=== PATIENT | female | born 1995 | race Caucasian/White ===

== ENCOUNTER 2018-01-22 23:52 | Inpatient (IN) | payer MEDICAID, OTHER ==
[2018-01-23] MEDS ORDERED: Lactated Ringer's 1,000 ML IV ONE (00:58)
[2018-01-23] MEDS ORDERED: Lactated Ringer's 1,000 ML IV SCH (01:45)
[2018-01-23 01:54] LABS: BASO % 0.2 % (0.0-2.0); EOS # 0.1 K/uL (0.0-0.7); EOS % 1.1 % (0.0-4.0); HEMOGLOBIN 10.4 g/dL (12.0-16.0); LYMPH # 2.3 K/uL (1.0-4.3); LYMPH % 19.7 % (20.0-40.0); MEAN CELL VOLUME 77.6 fl (81.0-99.0); MEAN CORPUSCULAR HEMOGLOBIN 25.6 pg (27.0-31.0); MEAN PLATELET VOLUME 9.7 fl (7.2-11.7); MONO # 1.1 K/uL (0.0-0.8); MONO % 9.8 % (0.0-10.0); NEUT % 69.2 % (50.0-75.0); RBC 4.07 Mil/uL (3.80-5.20); RED CELL DISTRIBUTION WIDTH 17.1 % (11.5-14.5); WHITE BLOOD COUNT 11.6 K/uL (4.8-10.8)
[2018-01-23] MEDS ORDERED: Fentanyl/Bupivacaine HCl 250 ML EPI ONE (02:12)
[2018-01-23] MEDS ORDERED: cefOXitin 2 GM in Sodium Chloride 0.9% 100 ML IVPB ONE (07:00)
[2018-01-23] MEDS ORDERED: OXYTOCIN/0.9 % NS 20 UNIT/1,000 ML BAG IV ONE ×2 (07:19→07:55)
[2018-01-23] MEDS ORDERED: Oxytocin 30 UNIT 30 UNITS/500 ML BAG IV ONE (07:19)
[2018-01-23] MEDS ORDERED: ePHEDrine 50 mg/ml Inj ONE (07:29)
[2018-01-23] MEDS ORDERED: Bupivacaine HCl 0.5% PF (30 ml) Inj ONE (07:29)
[2018-01-23] MEDS ORDERED: Morphine 5 mg/10 ml preservative-free Inj(Duramorph) ONE (07:29)
[2018-01-23] MEDS ORDERED: Sodium Chloride 0.9% 10 ML IV ONE (07:29)
[2018-01-23] MEDS ORDERED: Cellulose Hemostat 2X3 Sheet ONE (08:58)
[2018-01-23] MEDS ORDERED: Oxycodone/Acetaminophen 5/325 mg Tab PO PRN (09:02)
[2018-01-23] MEDS ORDERED: DiphenhydrAMINE 50 mg/ml Inj IVP PRN (09:02)
[2018-01-23] MEDS: oxyCODONE 5 mg Immediate Release Tab PO PRN ×2 (12:32→21:45)
--- NOTE | 2018-01-23 13:43 | OBADHP ---
Datetime: 01/23/2018 00:30 Admit Comment, IP Provider: 22 year old F presents at 39+3 weeks confirmed by LMP (04/19/17) for uterine contractions and vaginal spotting. She last saw her OBGYN on Monday (01/16/18) and her l ast U/s was (01/18/18). She reports good movement. Her pain is 7/10 severity and she is able to talk confotably through contractions. Her last meal was a sandwich at 6pm this evening. Her first two CS were uncomplicated and she recovered well. She reports that she has a scheduled CS with Dr. Murillo for this Monday01/26/18. OBGYN: Dr. Azam Murillo PMH: asthma FHx: Maternal - Thyroid, DM Surg Hx: 2x C/S (2013 boy, 2014 girl) - no complications Allergies: Toradol - diffuse swelling Meds: vitamin Labs: HIV neg HbSAg neg RPR neg GBS unkown Blood type/antibody unknown Assessment and Plan: 22 year old F presents at 39+3 weeks confirmed by LMP (04/19/17) for uterine contractions and vaginal spotting. -Admit to L_D -IVF -Monitor progression of labor -Possible CS 01/[address] Sanchez. Maggie Bennett, PGY1 Family Medicine Pelvic Type - PN: Adequate Extremities - PN: Normal Abdomen - PN: Normal Lungs - PN: Normal Heart - PN: Normal General - PN: Normal FHR - Baseline A Provider: 130 Vital Signs Provider: Within Normal Limits IP Chief Complaint: Uterine contractions; Maternal discomfort NICHD Variability Prov Fetus A: Moderate 6-25bpm NICHD Accel Fetus A IP Provider: [id number] NICHD Decel Fetus A IP Provider: None Dilatation, Provider: 0 Effacement, Provider: 0 Station, Provider: -3 EGA AdmitDate IP: 39.3 IP Adm Impression: Term, intrauterine IP Admit Plan: Admit to unit; Initiate labor protocol
--- NOTE | 2018-01-23 13:46 | OBDS ---
DELIVERY PERSONNEL Nurse Credit Advisor Certified: dimitri Delivery Doctor: Ruddy Murillo MD Scrub Nurse: China Sharpe OBT/Trent Clinical Exercise Specialist: Saadia Handley RN/SEGUN Wylie Anesthesiologist: Sedrick Mancini MD Heater Installer: dimitri Resident: dimitri MATERNAL INFORMATION Delivery Anesthesia: Epidural Medications in Delivery: Pitocin 20 units in 1000 cc at 125 cc/hr. Estimated Blood Loss (ml): 800 Placenta Cultured: No Maternal Complications: None Other Maternal Complications: Repeat C sec scheduled for Monday but started having pain last night RN Comments: Repeat C section attended by abd .Pt tolerated procedure well.No acute distress noted. Provider Comments: delivery of live baby girl 9/9 clear fluid tubes,and ovaries wnl placenta i ntact and anterior LABOR SUMMARY EDC: 01/26/2018 00:00 No. Babies in Womb: 1 Attempted: No Labor Anesthesia: Epidural LABOR INFORMATION Reason for Induction: Not Applicable Onset of Labor: 01/22/2018 22:00 Oxytocin: N/A Group B Beta Strep: Positive Antibiotics # of Doses: Mefoxin 2 gms IVPB p Antibiotics Time of Last Dose: 0810 Steroids Given: None Reason Steroids Not Administered: Not Applicable MEMBRANES Membranes Rupture Method: Artificial STAGES OF LABOR Stage 3 hrs: 0 Stage 3 min: 1 Total Time in Labor hrs: 10 Total Time in Labor min: 48 CSECTION DELIVERY Primary Indication: Repeat Elective CSection Urgency: Elective CSection Incidence: Repeat Labor: Labor Elective: Elective BABY A INFORMATION Infant Delivery Date/Time: 01/23/2018 08:47 Method of Delivery: Born in Route : No : N/A Forceps: N/A Vacuum Extraction: N/A Shoulder Dystocia : No SHOULDER DYSTOCIA BABY A Delivery Date/Time: 01/23/2018 08:47 PRESENTATION/POSITION BABY A Presentation: Cephalic Cephalic Presentation: Vertex Breech Presentation: N/A PLACENTA INFORMATION BABY A Placenta Delivery Time : 01/23/2018 08:48 Placenta Method of Delivery: Manual Removal Placenta Status: Delivered SCORES BABY A Heart Rate 1 min: >100 bpm Resp Effort 1 min: Good Cry Reflex Irritability 1 min: Cough or Sneeze or Pulls Away Muscle Tone 1 min: Active Motion Color 1 min: Body [place], Extremities Blue Resuscitation Effort 1 min: Tactile Stimulation SCORE 1 MIN: 9 Heart Rate 5 min: >100 bpm Resp Effort 5 min: Good Cry Reflex Irritability 5 min: Cough or Sneeze or Pulls Away Muscle Tone 5 min: Active Motion Color 5 min: Body [place], Extremities Blue Resuscitation Effort 5 min: Tactile Stimulation SCORE 5 MIN: 9 INFANT INFORMATION BABY A Gestational Age at Delivery: 39.4 Gestational Status: Term Outcome : Liveborn Infant Condition : Stable Infant Sex: Female IDENTIFICATION/MEDS BABY A ID Band Number: [id number] ID Band Location: Left Leg; Left Arm Vitamin K Given : Not Given Erythromycin Given: Not Given WEIGHT/LENGTH BABY A Infant Birthweight (gms): 3820 Weight (lb): 8 Infant Weight (oz): 7 Infant Length Inches: 21.00 Length cms: 53.3 CORD INFORMATION BABY A No. Cord Vessels: 3 Nuchal Cord : N/A Cord Blood Taken: Yes Suction: Mouth ASSESSMENT BABY A Infant Complications: None Physical Findings at Delivery: Within Normal Limits Infant Respirations: Appears Normal Management Information Systems Director/ALS Called : No Infant Care By: /Segun Milner Transferred To: Remains with Mother
[2018-01-24] MEDS: oxyCODONE 5 mg Immediate Release Tab PO PRN (05:10)
[2018-01-24 06:51] LABS: HEMOGLOBIN 8.9 g/dL (12.0-16.0); MEAN CELL VOLUME 78.2 fl (81.0-99.0); MEAN CORPUSCULAR HEMOGLOBIN 25.8 pg (27.0-31.0); RBC 3.45 Mil/uL (3.80-5.20); WHITE BLOOD COUNT 15.5 K/uL (4.8-10.8)
[2018-01-24] MEDS: Oxycodone/Acetaminophen 5/325 mg Tab PO PRN ×5 (07:56→22:41)
[2018-01-24] MEDS ORDERED: Influenza Vaccine (5 YR UP)/PF 60 MCG/0.5 ML SYR IM ONE (09:00)
[2018-01-24] MEDS: Multivitamin With Minerals Tab PO SCH (17:48)
--- NOTE | 2018-01-24 19:36 | OBPPN ---
Datetime: 01/24/2018 19:31 PP Pain Prov: Within normal limits PP Nausea Prov: Denies PP Flatus Prov: Yes PP Breasts Prov: Normal PP Heart Prov: Normal PP Lungs Prov: Normal PP Abdomen/Uterus Prov: Normal PP Lochia Prov: Normal PP Vulva/Perineum Prov: Normal PP CVA Tenderness Prov: Normal PP Extremities Prov: Normal PP C/S Incision Prov: Normal PP Progress Prov: Normal PP Impression Prov: Normal progression PP Plan Prov: Continue present management PP Progress Note Prov: stable pod1 continue present care oob with assistance,may shower increase t as tolerated dc dressing IP PP Procedures: None Vital Signs Provider PP: Reviewed; Within Normal Limits
--- NOTE | 2018-01-24 21:22 | OP ---
PROCEDURE DATE: 01/23/2018 PREOPERATIVE DIAGNOSIS: Term , previous section x2 for delivery. POSTOPERATIVE DIAGNOSIS: Term , previous section x2 for delivery. SURGEON: Abram Murillo MD COMMISSIONING MANAGER: Jorge Huerta MD ANESTHESIOLOGIST: Dr. Mancini. ANESTHESIA: Spinal anesthesia. PROCEDURE: Repeat low transverse section. FINDINGS: Term size uterus, live baby girl, Apgars 9 and 9. Clear fluids. Cord with three vessels. Placenta, anterior tubes, and ovaries within normal limits. DESCRIPTION OF PROCEDURE: With the patient in the supine position and spinal anesthesia, the patient was prepped and draped in the usual sterile manner. After this was done, Dr. Huerta and I prepared the patient for the surgery and a Pfannenstiel incision was made and taken down to the fascia in layers. Fascia was then incised and extended bilaterally with Dr. Huerta doing his half and I am doing my half and muscle was from the fascia by sharp dissection, after which the peritoneum was grasped and opened vertically. After this was done, the paracolic gutters were packed with wet laps, pushing the bowel away from the operative field. A low transverse incision was made in the uterus extending bilaterally and closing upwards. The baby was removed without any complication and given to the regional production manager who resuscitated. After this was done, the placenta was removed and intact. Uterus was then exteriorized, cleaned, and closed in two layers with 1 Vicryl running interlocking stitch. After this was done, the pelvic cavity was irrigated until clean. The uterus was repositioned. Following this, the peritoneum was grasped and closed with 1 Vicryl, muscle approximately with 1 Vicryl. Fascia was closed with 1 Vicryl interlocking stitch starting at each end and finishing in the midline. Dr. Huerta doing his half and I am doing my half. Following this, the subcutaneous layer was closed with 2-0 Plain, and the skin was closed with lucia. Estimated blood loss was about 800 mL. The patient tolerated the procedure well and was in satisfactory condition. Dr. Huerta was present from the beginning of the surgery to the end of the surgery. Abram Murillo MD [facility] # [id number]
[2018-01-25] MEDS: Oxycodone/Acetaminophen 5/325 mg Tab PO PRN ×4 (03:17→22:10)
[2018-01-25] MEDS: Multivitamin With Minerals Tab PO SCH (08:17)
--- NOTE | 2018-01-25 08:24 | OBPPN ---
Datetime: 01/25/2018 08:19 PP Pain Prov: Within normal limits PP Nausea Prov: Denies PP Flatus Prov: Yes PP BM Prov: No PP Breasts Prov: Normal PP Heart Prov: Normal PP Lungs Prov: Normal PP Abdomen/Uterus Prov: Normal PP Lochia Prov: Normal PP Vulva/Perineum Prov: Normal PP CVA Tenderness Prov: Normal PP Extremities Prov: Normal PP Progress Prov: Normal PP Impression Prov: Normal progression PP Plan Prov: Continue present management PP Progress Note Prov: stable pod2 continue present care IP PP Procedures: None Vital Signs Provider PP: Reviewed; Within Normal Limits
[2018-01-25] MEDS ORDERED: Hydrocortisone-Pramoxine 1%-1% Foam(10 gm) TOP PRN (08:38)
[2018-01-25] MEDS ORDERED: Pneumococcal 23-Valent Vaccine IM ONE (09:00)
[2018-01-26] MEDS: Oxycodone/Acetaminophen 5/325 mg Tab PO PRN ×3 (03:07→12:38)
[2018-01-26] MEDS: Multivitamin With Minerals Tab PO SCH (08:33)
--- NOTE | 2018-01-26 14:13 | CARD ---
APPROVED REPORT Date of service: 01/25/2018 EKG Measurement Heart [id number] NM [id number] <Conclusion> Sinus tachycardia Otherwise normal ECG
--- NOTE | 2018-01-26 16:34 | OBPPN ---
Datetime: 01/26/2018 16:32 PP Pain Prov: Within normal limits PP Nausea Prov: Denies PP Flatus Prov: Yes PP BM Prov: Yes PP Breasts Prov: Normal PP Heart Prov: Normal PP Lungs Prov: Normal PP Abdomen/Uterus Prov: Normal PP Lochia Prov: Normal PP Vulva/Perineum Prov: Normal PP CVA Tenderness Prov: Normal PP Extremities Prov: Normal PP C/S Incision Prov: Normal PP Progress Prov: Normal PP Impression Prov: Normal progression PP Plan Prov: Continue present management PP Progress Note Prov: stable pod3 dc home today IP PP Procedures: None Vital Signs Provider PP: Reviewed; Within Normal Limits
--- NOTE | 2018-01-26 16:37 | OBDCSUM ---
Datetime: 01/26/2018 13:26 Discharged to, Provider: Home Follow up at, Provider: Dr. Murillo Disch Instr Activity: Normal activity; Bedrest; May be up to bathroom; May be up for meals; May Show er Disch Instr Diet: Regular Discharge Instructions, Provider: Routine instructions given Discharge Diagnosis, Provider: Term Delivered Discharge Time: 01/26/2018 13:30 Follow up in weeks, Provider: 1 week Disch Referrals: None Disch Activity Restrictions: No exercising; No lifting; No driving; Minimize walking; Minimize stair -climbing; No sexual activity; Nothing in vagina - [place], tampons, douche Discharge Comment, Provider: ashli home today rto 1week call office if any problem Contraception after Delivery: Undecided
[2018-01-27 02:48] VITALS: BP 122/61; PULSE 98; RESP 16; TEMP 98.3; O2SAT 99
== END 2018-01-26 19:50 | disposition home or self-care (01) | DRG 371 ==
LOC: H.EROB2 23:52 → H.L&D 01-23 01:00 → H.OB/GYN 01-23 13:30
PROVIDERS: ADMIT Specialist; ATTEND Specialist
PROC: 10D00Z1 Extraction of Products of Conception, Low, Open Approach (ICD-10-PCS; principal; 2018-01-23)
PROC: 4A1HXCZ Monitoring of Products of Conception, Cardiac Rate, External Approach (ICD-10-PCS; 2018-01-23)
DX: O34.211 Maternal care for low transverse scar from previous cesarean delivery (principal); N85.8 Other specified noninflammatory disorders of uterus; Z3A.39 39 weeks gestation of pregnancy; Z37.0 Single live birth; O99.52 Diseases of the respiratory system complicating childbirth; J45.909 Unspecified asthma, uncomplicated